=== PATIENT | male | born 2000 | race American Indian/Alaskan Native ===

== ENCOUNTER 2019-04-07 23:13 | Emergency (ER) | payer BC ==
[2019-04-07 23:23] VITALS: BP 142/68
--- NOTE | 2019-04-08 00:01 | Emergency Department Report ---
ED General Adult HPI - General Chief complaint: Dyspnea/Respdistress Stated complaint: JEANA Time Seen by Provider: 04/07/19 23:58 Source: patient Mode of arrival: Stretcher Limitations: No Limitations - History of Present Illness Initial comments: 19-year-old male with a history of asthma presents with the complaint of shortness of breath and flulike symptoms for the past week. Patient states that symptoms worsened today and thus EMS was called. EMS gave patient magnesium, Decadron 20 mg and 7.5 albuterol prior to presentation in emergency department. Patient states he has sick contacts at work. Patient states his cough is productive of mucus. Patient denies any fever. Patient denies any prior history of intubation. Patient states his last admission for his asthma was he was 4 years old. - Related Data Previous Rx's Medication Instructions Recorded Last Taken Type Albuterol Sulfate [Proair 90 mcg IH BID #1 aer.[email or web address] 04/08/19 Unknown Rx Respiclick] Albuterol Sulfate [Proair 90 mcg IH BID #1 aer.[email or web address] 04/08/19 Unknown Rx Respiclick] Azithromycin [Zithromax TAB] 250 mg PO QDAY #6 tablet 04/08/19 Unknown Rx Azithromycin [Zithromax TAB] 250 mg PO QDAY #6 tablet 04/08/19 Unknown Rx predniSONE [Deltasone] 20 mg PO QDAY #10 tab 04/08/19 Unknown Rx Allergies Allergy/AdvReac Type Severity Reaction Status Date / Time No Known Allergies Allergy Unverified 04/07/19 23:21 ED Review of Systems ROS: Stated complaint: JEANA Other details as noted in HPI Constitutional: weakness Eyes: denies: eye pain, eye discharge, vision change ENT: denies: ear pain, throat pain Respiratory: cough, wheezing Cardiovascular: denies: chest pain, palpitations Endocrine: no symptoms reported Gastrointestinal: denies: abdominal pain, nausea, diarrhea Genitourinary: denies: urgency, dysuria Musculoskeletal: denies: back pain, joint swelling, arthralgia Skin: denies: rash, lesions Neurological: denies: headache, weakness, paresthesias Psychiatric: denies: anxiety, depression Hematological/Lymphatic: denies: easy bleeding, easy bruising ED Past Medical Hx - Past Medical History Hx Asthma: Yes - Surgical History Past Surgical History?: No - Social History Smoking Status: Current Some Day Smoker Substance Use Type: None - Medications Home Medications: Home Medications Medication Instructions Recorded Confirmed Last Taken Type Albuterol Sulfate [Proair 90 mcg IH BID #1 aer.[email or web address] 04/08/19 Unknown Rx Respiclick] Albuterol Sulfate [Proair 90 mcg IH BID #1 aer.pow.ba 04/08/19 Unknown Rx Respiclick] Azithromycin [Zithromax TAB] 250 mg PO QDAY #6 tablet 04/08/19 Unknown Rx Azithromycin [Zithromax TAB] 250 mg PO QDAY #6 tablet 04/08/19 Unknown Rx predniSONE [Deltasone] 20 mg PO QDAY #10 tab 04/08/19 Unknown Rx ED Physical Exam - General Limitations: No Limitations General appearance: alert, other (mild respiratory distress) - Head Head exam: Present: atraumatic, normocephalic - Eye Eye exam: Present: normal appearance - ENT ENT exam: Present: mucous membranes moist - Neck Neck exam: Present: normal inspection - Respiratory Respiratory exam: Present: wheezes (diffusely throughout the lungs) - Cardiovascular Cardiovascular Exam: Present: regular rate, normal rhythm. Absent: systolic murmur, diastolic murmur, rubs, gallop - GI/Abdominal GI/Abdominal exam: Present: soft, normal bowel sounds - Rectal Rectal exam: Present: deferred - Extremities Exam Extremities exam: Present: normal inspection - Back Exam Back exam: Present: normal inspection - Neurological Exam Neurological exam: Present: alert, oriented X3 - Psychiatric Psychiatric exam: Present: normal affect, normal mood - Skin Skin exam: Present: warm, dry, intact, normal color. Absent: rash ED Course Vital Signs 04/07/19 04/07/19 04/08/19 23:16 23:18 00:29 Temperature 98 F 98.6 F Pulse Rate 83 Pulse Rate [ 98 H Bilateral Throughout] Respiratory 18 Rate Respiratory 20 Rate [Bilateral Throughout] Blood Pressure 142/68 O2 Sat by Pulse 98 Oximetry ED Medical Decision Making - Lab Data Result diagrams: 04/08/19 00:13 04/08/19 00:13 - Medical Decision Making In addition to the treatment given by EMS patient was then given 5 of albuterol while here in emergency department as well as a liter of normal saline while here in emergency department. Patient is currently improved and without wheezing. Patient be treated as bronchitis and discharged as outpatient. - Differential Diagnosis asthma exacerbation; pneumonia; dehydration; electrolyte abnormality; anemi Critical care attestation.: If time is entered above; I have spent that time in minutes in the direct care of this critically ill patient, excluding procedure time. ED Disposition Clinical Impression: Asthma exacerbation, Bronchitis Disposition: DC- TO HOME OR SELFCARE Is pt being admited?: No Does the pt Need Aspirin: No Condition: Stable Instructions: Chronic Bronchitis (ED) Prescriptions: predniSONE [Deltasone] 20 mg PO QDAY #10 tab Albuterol Sulfate [Proair Respiclick] 90 mcg IH BID #1 aer.pow.ba Albuterol Sulfate [Proair Respiclick] 90 mcg IH BID #1 aer.pow.ba Azithromycin [Zithromax TAB] 250 mg PO QDAY #6 tablet Azithromycin [Zithromax TAB] 250 mg PO QDAY #6 tablet Referrals: MANUELA HAMMLUBEC MD MAGDALENA [Primary Care Provider] - 3-5 Days Time of Disposition: 03:59 Print Language: KOREAN
[2019-04-08] MEDS ORDERED: SODIUM CHLORIDE 0.9% 1000 ML 1,000 ML IV ONE (00:03)
--- NOTE | 2019-04-08 00:11 | XRay Report ---
CHEST 1 VIEW INDICATION / CLINICAL INFORMATION: Chest Pain. COMPARISON: None available. FINDINGS: SUPPORT DEVICES: None. HEART / MEDIASTINUM: No significant abnormality. LUNGS / PLEURA: No significant pulmonary or pleural abnormality. No pneumothorax. ADDITIONAL FINDINGS: No significant additional findings. IMPRESSION: 1No acute abnormality Signer Name: Kailash Delcid MD Signed: 04/08/2019 12:06 AM Workstation Name: [id number]
[2019-04-08] MEDS ORDERED: ALBUTEROL 2.5 MG/3 ML NEBU IH ONE (00:12)
[2019-04-08 00:45] LABS: Hematocrit 43.7 % (35.5-45.6); Hemoglobin 15.1 gm/dl (11.8-15.2); Mean Corpuscular HGB Conc 35 % (32-34); Mean Corpuscular Volume 89 fl (84-94); Platelet Count 249 K/mm3 (140-440); Red Blood Count 4.93 M/mm3 (3.65-5.03); Red Cell Distribution Width 13.7 % (13.2-15.2)
[2019-04-08 01:08] LABS: Alanine Aminotransferase 23 units/L (7-56); Albumin 4.6 g/dL (3.9-5); BUN/Creatinine Ratio 8; Blood Urea Nitrogen 7 mg/dL (9-20); Hemolysis Index 12
== END 2019-04-08 04:26 | disposition home or self-care (01) ==
LOC: ED 23:13
DX: J45.901 Unspecified asthma with (acute) exacerbation (principal); F17.200 Nicotine dependence, unspecified, uncomplicated; Z87.09 Personal history of other diseases of the respiratory system; Z79.899 Other long term (current) drug therapy
CPT/HCPCS: 36415; 71045; 80053; 85027; 87400; 94640; 99284; J7030; 94644